=== PATIENT | male | born 1965 | race Caucasian/White ===

== ENCOUNTER 2016-07-02 09:46 | Emergency (ER) | payer BC ==
[2016-07-02] MEDS ORDERED: IBUPROFEN 200 MG TAB PO ONE (09:58)
[2016-07-02] MEDS ORDERED: NS 1,000 ML IV ONE ×2 (09:59→12:08)
--- NOTE | 2016-07-02 10:09 | UCPHY ---
H & P Time Seen by Provider: 07/02/16 09:57 Patient Type: Established HPI/ROS: This patient reports he feels poorly. He explains that 3 days prior to arrival he developed a cough productive of sputum that he thinks is yellowish to greenish in color. He has associated dyspnea that is mild to moderate that improves with albuterol inhaler. He has also been taking Sudafed Mucinex and Tylenol partial relief. He notes no other exacerbating or alleviating factors. This morning is unable to really uses inhaler effectively because he felt difficulty getting a large breath in when he had an inhaler it causes coughing the prevented further inhalation. ROS: He reports high fevers and chills. He reports headaches with fever that resolved with analgesics/antipyretics he has no respiratory distress. No pleuritic pain. He reports no belly pain no nausea or vomiting. He does not have myalgias. He does have mild lightheadedness when he standing. 10 point ROS is otherwise negative. Past Medical/Surgical History: Asthma-mild Pneumonia-1 previous episode years ago Social History: Occasional alcohol. No drug use. Smoking Status: Never smoked Physical Exam: Vital signs are notable for high temperature, tachycardia to 127, a mild hypoxia with O2 sat of 91% on room air General Appearance: Alert, no distress. Eyes: Pupils equal and round no pallor or injection. ENT, Mouth: Mucous membranes moist. Respiratory: Mild expiratory wheeze bilaterally. I appreciate no rales or rhonchi. Cardiovascular: Tachycardic with no murmur gallop or rub Gastrointestinal: Abdomen is soft and nontender, no masses, bowel sounds normal. Neurological: Alert with no focal deficits Skin: Warm and dry, scattered dry erythematous rash with plaque that is sparse consistent with psoriasis Musculoskeletal: Neck is supple nontender. Extremities are symmetrical, full range of motion. Psychiatric: mood and affect are normal DIFFERENTIAL DIAGNOSIS: After history and physical exam differential diagnosis was considered for pneumonia, influenza, dehydration, sepsis Constitutional: Initial Vital Signs Temperature (C) 39.3 C H 07/02/16 09:58 Heart Rate 127 H 07/02/16 09:58 Respiratory Rate 20 07/02/16 09:58 Blood Pressure 135/87 H 07/02/16 09:58 O2 Sat (%) 91 L 07/02/16 09:58 O2 Delivery Mode Room Air O2 (L/minute) 2 Allergies/Adverse Reactions: Sulfa (Sulfonamide Antibiotics) Allergy (Verified 07/02/16 10:02) Home Medications: Medication Instructions Recorded ADVAIR HFA 230-21 MCG INHALER 05/18/16 Proair Hfa Icu (*) 05/18/16 Albuterol Hfa Anes Only [Proair 2 puffs IH Q4 PRN #1 mdi 07/02/16 Hfa Icu (*)] Albuterol [Proventil Neb] 3 ml IH Q4 PRN #25 deyvial 07/02/16 Azithromycin [Zithromax] 250 mg PO DAILY #6 tab 07/02/16 Fluticasone Hfa 220 Mcg [Flovent 2 puffs IH DAILY #1 mdi 07/02/16 220 MCG Hfa MDI (*)] Oseltamivir Phosphate [Tamiflu 75 75 mg PO BID #6 cap 07/02/16 mg (*)] MDM/Departure - MDM Diagnostics: 12 lead EKG performed at 11:32 a.m. indication evidence of cardiomegaly on chest x-ray evaluate for pericarditis or ischemic abnormalities Performed at 11:30 a.m. to reveals sinus tachycardia 110 Intervals: Normal throughout [place]: Normal throughout ST segments: Normal throughout Overall assessment: Normal EKG with exception of sinus tachycardia Medications Given: Discontinued Medications Albuterol/Ipratropium (Duoneb) 3 ml IH EDNOW ONE Stop: 07/02/16 10:32 Last Admin: 07/02/16 10:37 Dose: 3 ml Sodium Chloride (Ns) 1,000 mls @ 0 mls/hr IV ONCE ONE PRN Reason: Wide Open Stop: 07/02/16 10:00 Last Admin: 07/02/16 11:03 Dose: 1,000 mls Ceftriaxone Sodium 1 gm/ (Sodium Chloride) 100 mls @ 200 mls/hr IV EDNOW ONE PRN Reason: Protocol Stop: 07/02/16 11:53 Last Admin: 07/02/16 12:00 Dose: 100 mls Sodium Chloride (Ns) 1,000 mls @ 0 mls/hr IV ONCE ONE PRN Reason: Wide Open Stop: 07/02/16 12:09 Last Admin: 07/02/16 12:20 Dose: 1,000 mls Ibuprofen (Motrin) 600 mg PO EDNOW ONE Stop: 07/02/16 09:59 Last Admin: 07/02/16 10:37 Dose: 600 mg ED Course/Re-evaluation: IV normal saline bolus, blood cultures drawn, labs pending, ibuprofen p.o. DuoNeb with increased aeration decreased wheeze. Decreased cough Discuss the patient's findings with him-positive influenza day, infiltrate on chest x-ray consistent with pneumonia. Given the left shift on his CBC will cover bacterial super infection as well with ceftriaxone IV and Zithromax. He initially did have SIRS criteria but improved with treatment. I did offer admission to him but he prefers to be home I think given his improvement this is reasonable. At the time of discharge his vital signs have normalized exception of a pulse of 101. He is afebrile, normal respiratory rate and O2 sat of 94%. He also has normal BP r - Depart Disposition: Home, Routine, Self-Care Clinical Impression: Influenza A, Community acquired pneumonia Condition: Good Instructions: Asthma (ED), Influenza (ED), Community Acquired Pneumonia (ED) Additional Instructions: Diagnosis: 1. Influenza A 2. Pneumonia 3. Asthma Plan: Humidifier Albuterol inhaler with spacer for cough, wheeze or shortness of breath or albuterol nebulizer every 2-4 hours as needed Zithromax antibiotic Flovent steroid inhaler diminished bronchial inflammation Tamiflu Follow up with primary care physician for recheck sometime the next 2-5 days Good the emergency department for any significant worsening despite treatment plan No work until 24 hours after resolution of her fever. Stand Alone Forms: Work Excuse Prescriptions: Fluticasone Hfa 220 Mcg [Flovent 220 MCG Hfa MDI (*)] 2 puffs IH DAILY #1 mdi Albuterol Hfa Anes Only [Proair Hfa Icu (*)] 2 puffs IH Q4 PRN #1 mdi PRN Reason: Wheezing Albuterol [Proventil Neb] 3 ml IH Q4 PRN #25 deyvial PRN Reason: Wheezing Oseltamivir Phosphate [Tamiflu 75 mg (*)] 75 mg PO BID #6 cap Azithromycin [Zithromax] 250 mg PO DAILY #6 tab Referrals: IN STATE,. [Primary Care Provider] - As per Instructions - PQRS PQRS Measurement: NA
[2016-07-02] MEDS ORDERED: IPRATROPIUM/ALBUTEROL 3 ML DEYVIAL IH ONE (10:31)
[2016-07-02 10:58] LABS: % IMMATURE GRANULYOCYTES 0.3 % (0.0-1.1); ABSOLUTE IMMATURE GRANULOCYTES 0.03 10^3/uL (0.00-0.10); ADD DIFF? NO; ADD MORPH? NO; ADD SCAN? NO; ATYPICAL LYMPHOCYTE FLAG 20 (0-99); FRAGMENT RBC FLAG 0 (0-99); HEMATOCRIT 41.9 % (40.0-51.0); HEMOGLOBIN 14.4 g/dL (13.7-17.5); LEFT SHIFT FLG 40 (0-99); LIPEMIA HEMOLYSIS FLAG 90 (0-99); MEAN CELL HEMOGLOBIN 30.2 pg (27.9-34.1); MEAN CELL HEMOGLOBIN CONCENTR. 34.4 g/dL (32.4-36.7); MEAN CELL VOLUME 87.8 fL (81.5-99.8); MEAN PLATELET VOLUME 9.9 fL (8.7-11.7); PLATELET CLUMPS FLAG 0 (0-99); PLATELET COUNT 177 10^3/uL (150-400); RED BLOOD CELL COUNT 4.77 10^6/uL (4.40-6.38); RED CELL DISTRIBUTION WIDTH 12.4 % (11.5-15.2)
[2016-07-02 11:10] LABS: ANION GAP 13 mEq/L (8-16); CARBON DIOXIDE 21 mEq/l (22-31); CHLORIDE 101 mEq/L (97-110); CREATININE 1.2 mg/dL (0.7-1.3); GLOMERULAR FILTRATION RATE > 60; GLUCOSE 122 mg/dL (70-100); POTASSIUM 3.8 mEq/L (3.5-5.2); SODIUM 135 mEq/L (134-144)
--- NOTE | 2016-07-02 11:34 | CPEKG ---
Heart Rate: 110 RR Interval: 545 P-R Interval: 148 QRSD Interval: 80 QT Interval: 320 QTC Interval: 433 P [place]: 50 QRS [place]: 42 T Wave [place]: 10 EKG Severity - OTHERWISE NORMAL ECG - EKG Impression: SINUS TACHYCARDIA Electronically Signed By: Neymar Burris 02-Jul-2016 12:24:10
[2016-07-02 12:25] VITALS: RESP 16
[2016-07-02 13:56] VITALS: BP 130/81; PULSE 101; TEMP 210; O2SAT 94
--- NOTE | 2016-07-02 15:12 | DX ---
PA and Lateral Chest July 02, 2016, 1002 hours. Clinical indication cough Comparison: May 18, 2016. Findings: Heart size is upper limits of normal. There is moderate airways disease and some mild atele ctatic change at the right base. The left lung is clear. Bones are grossly unremarkable. Impression: Mild/moderate airways disease with some right basilar atelectatic change.
== END 2016-07-02 13:53 | disposition home or self-care (01) ==
LOC: CED 09:46
DX: J09.X2 Influenza due to identified novel influenza A virus with other respiratory manifestations (principal); J18.9 Pneumonia, unspecified organism
CPT/HCPCS: 71020-PO; 80048-PO; 83605-PO; 83880-PO; 85025-PO; 87400-PO; 93010-PO; 96361-PO; 96365-PO; 99215-PO; G0463-PO